=== PATIENT | male | born 1995 | race Caucasian/White ===

== ENCOUNTER 2022-12-07 11:46 | Emergency (ER) | payer OTHER ==
[~2022-12-07] VITALS: Ht 172.7 cm; Wt 72.7 kg
[2022-12-07 11:54] VITALS: BP 114/80; TEMP 98.3
[2022-12-07 14:40] VITALS: PULSE 67
== END 2022-12-07 14:30 | disposition home or self-care (01) ==
LOC: COL.ER 11:46
DX: S46.912A Strain of unspecified muscle, fascia and tendon at shoulder and upper arm level, left arm, initial encounter (principal); S50.812A Abrasion of left forearm, initial encounter; S80.212A Abrasion, left knee, initial encounter; S70.212A Abrasion, left hip, initial encounter; V23.99XA Unspecified rider of other motorcycle injured in collision with car, pick-up truck or van in traffic accident, initial encounter; Y92.410 Unspecified street and highway as the place of occurrence of the external cause